=== PATIENT | male | born 2005 | race Caucasian/White ===

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

== ENCOUNTER 2024-02-12 19:39 | Emergency (ER) | payer SELFPAY ==
[2024-02-12 19:46] VITALS: TEMP 97.9
--- NOTE | 2024-02-12 20:15 | ED ---
General Adult HPI - General Chief complaint: Upper Respiratory Infection Stated complaint: cough, blood in vomit Time Seen by Provider: 02/12/24 19:53 Source: patient Mode of arrival: ambulatory Limitations: no limitations - History of Present Illness Initial comments: Dictation was produced using [email or web address] dictation software. please excuse any grammatical, word or spelling errors. Chief Complaint: 18-year-old male presents to the emergency department with chronic cough History of Present Illness: Patient is 18-year-old male presents with chronic cough states that his cough is worse whenever he tries to talk. He has no insurance and no primary care doctor [place]. Tried to go to urgent care but they were not accepting him as a patient he did not want to pay [facility]. Patient states that he feels slightly ill. No obvious sick contacts. He has been having symptoms for the last 3 months. Does not smoke tobacco. He does smoke marijuana. The ROS documented in this emergency department record has been reviewed and confirmed by me. Those systems with pertinent positive or negative responses have been documented in the HPI. All other systems are other negative and/or noncontributory. - Related Data Previous Rx's Medication Instructions Recorded Albuterol Inhaler [Ventolin Hfa 1 - 2 puff INHALATION RT-Q6H PRN 02/12/24 Inhaler] #1 each Benzonatate [Tessalon Perle] 100 mg PO TID PRN #24 capsule 02/12/24 Allergies Allergy/AdvReac Type Severity Reaction Status Date / Time No Known Allergies Allergy Verified 02/12/24 19:46 Review of Systems ROS Statement: Those systems with pertinent positive or pertinent negative responses have been documented in the HPI. ROS Other: All systems not noted in ROS Statement are negative. Past Medical History Past Medical History: No Reported History History of Any Multi-Drug Resistant Organisms: None Reported Past Surgical History: No Surgical Hx Reported Past Psychological History: PTSD Smoking Status: Former smoker, Never smoker Past Alcohol Use History: Rare Past Drug Use History: Marijuana General Exam - General Exam Comments Initial Comments: PHYSICAL EXAM: General Impression: Alert and oriented x3, secondary to coughing HEENT: Normocephalic atraumatic, extra-ocular movements intact, pupils equal and reactive to light bilaterally, mucous membranes moist. Cardiovascular: Heart regular rate and rhythm Chest: Able to complete full sentences, no retractions, no tachypnea Abdomen: abdomen soft, non-tender, non-distended, no organomegaly Musculoskeletal: Pulses present and equal in all extremities, no peripheral edema Motor: no focal deficits noted Neurological: CN II-XII grossly intact, no focal motor or sensory deficits noted Skin: Intact with no visualized rashes Psych: Normal affect and mood Limitations: no limitations Course Vital Signs 02/12/24 19:44 Temperature 97.9 F Pulse Rate 127 H Respiratory 22 Rate Blood Pressure 151/94 O2 Sat by Pulse 97 Oximetry Medical Decision Making - Medical Decision Making Was pt. sent in by a medical professional or institution (, PA, LAMINATION MACHINE OPERATOR, urgent care, hospital, or residential...) When possible be specific @ -No Did you speak to anyone other than the patient for history (EMS, parent, family, police, friend...)? What history was obtained from this source @ -No Did you review nursing and triage notes (agree or disagree)? Why? @ -I reviewed and agree with nursing and triage notes Were old charts reviewed (outside hosp., previous admission, EMS record, old EKG, old radiological studies, urgent care reports/EKG's, residential records)? Report findings @ -No old charts were reviewed Differential Diagnosis (chest pain, altered mental status, abdominal pain women, abdominal pain men, vaginal bleeding, musculoskeletal, weakness, fever, dyspnea, syncope, headache, dizziness, GI bleed, back pain, seizure, CVA, palpatations, mental health)? @ -Pertussis, reflux, allergic cough EKG interpreted by me (3pts min.). @ -None done X-rays interpreted by me (1pt min.). @ - CT interpreted by me (1pt min.). @ -None done U/S interpreted by me (1pt. min.). @ -None done What testing was considered but not performed or refused? (CT, X-rays, U/S, labs)? Why? @ -None What meds were considered but not given or refused? Why? @ -None Was smoking cessation discussed for >3mins.? @ -No Were there social determinants of health that impacted care today? How? (Homelessness, low income, unemployed, alcoholism, drug addiction, transportation, low edu. Level, literacy, decrease access to med. care, [facility], rehab)? @ -No Was there de-escalation of care discussed even if they declined (Discuss DNR or withdrawal of care, Hospice)? DNR status @ -No What co-morbidities impacted this encounter? (DM, HTN, Smoking, COPD, CAD, Cancer, CVA, ARF, Chemo, Hep., AIDS, mental health diagnosis, sleep apnea, morbid obesity)? @ -None Was patient admitted / discharged? Hospital course, mention meds given and route, prescriptions, significant lab abnormalities, going to OR and other pertinent info. @ -18-year-old male presents emergency department with chronic cough. Vital signs shows tachycardia 127. Patient has intractable coughing at the bedside. Given breathing treatment. Chest x-ray ordered patient also given 10 mg of Decadron. Will reevaluate reevaluated after albuterol states that his symptoms felt like they were slightly improved. Patient discharged given prescription for Tessalon Perles and given referral to pulmonology Did you discuss the management of the patient with other professionals (professionals i.e. , PA, LAMINATION MACHINE OPERATOR, lab, RT, psych nurse, group social worker, medical assistant instructor, teacher, safety and security officer, case resource manager)? Give summary @ -No Was critical care preformed (if so, how long)? @ -No Undiagnosed new problem with uncertain prognosis? @ -No Drug Therapy requiring intensive monitoring for toxicity (Heparin, Nitro, Insulin, Cardizem)? @ -No Were any procedures done? @ -No Diagnosis/symptom? Acute, or Chronic, or Acute on Chronic? Uncomplicated (without systemic symptoms) or Complicated (systemic symptoms)? @ -Cough Side effects of treatment? @ -No Exacerbation, Progression, or Severe Exacerbation? @ -No Poses a threat to life or bodily function? How? (Chest pain, [place], [place], pneumonia, PE, COPD, DKA, ARF, appy, cholecystitis, CVA, Diverticulitis, Homicidal, Suicidal, threat to staff... and all critical care pts) @ -No Disposition Clinical Impression: Cough Disposition: HOME SELF-CARE Condition: Fair Instructions (If sedation given, give patient instructions): Chronic Cough (ED) Prescriptions: Benzonatate [Tessalon Perle] 100 mg PO TID PRN #24 capsule PRN Reason: Cough Albuterol Inhaler [Ventolin Hfa Inhaler] 1 - 2 puff INHALATION RT-Q6H PRN #1 each PRN Reason: Dyspnea Is patient prescribed a controlled substance at d/c from ED?: No Referrals: Marilu Flores MD [STAFF PHYSICIAN] - 1-2 days Time of Disposition: 20:54
[2024-02-12] MEDS: ALBUTEROL HFA INHALER INHALATION STA (20:26)
--- NOTE | 2024-02-12 20:53 | XR ---
EXAMINATION TYPE: XR chest 2V DATE OF EXAM: 02/12/2024 COMPARISON: None HISTORY: 18-year-old male with cough for 3 months TECHNIQUE: PA and lateral views FINDINGS: Heart normal size. Aorta and pulmonary vasculature within normal limits. No consolidation or pleural effusion. IMPRESSION: No acute cardiopulmonary process. [facility] Renae Salvador, , 02/12/2024 8:51 PM
[2024-02-12] MEDS: dexAMETHasone 4 MG TAB PO STA (21:00)
[2024-02-12 21:08] VITALS: BP 133/85; PULSE 107; RESP 16
== END 2024-02-12 21:08 | disposition home or self-care (01) ==
LOC: EC 19:39
CPT/HCPCS: 71046; 94640; 99283